=== PATIENT | male | born 1970 | race Caucasian/White ===

== ENCOUNTER 2017-04-03 09:30 | Inpatient (IN) | payer OTHER ==
--- NOTE | 2017-04-03 09:55 | EDPHY ---
H & P Smoking Status: Current every day smoker Time Seen by Provider: 04/03/17 09:46 HPI/ROS: CHIEF COMPLAINT: Left arm pain and swelling HISTORY OF PRESENT ILLNESS: 46-year-old male presents to the emergency department by private vehicle complaining of pain and swelling in his left arm since yesterday. He denies any known trauma or injury. He does state that he was doing some exercises at home and although he did not have any pain while doing the exercises he states after he finished, he noted a pressure sensation in his left elbow. He states throughout the day it is swollen and then this morning it has become more significantly swollen from his left humerus down to his left hand. He describes intermittent tingling in his fingers. He describes a lot of "pressure ". He denies pleuritic chest pain. Denies shortness of breath. Denies headache. No symptoms in the right upper extremity or the lower extremities bilaterally. No abdominal pain or vomiting. REVIEW OF SYSTEMS: Constitutional: No fever, no chills. Eyes: No double or blurry vision. ENT: No sore throat. Respiratory: No cough, no shortness of breath. Cardiac: No chest pain. Gastrointestinal: No abdominal pain, vomiting or diarrhea. Genitourinary: No dysuria. Musculoskeletal: No neck or back pain. Skin: No rashes. Neurological: No headache. (Gopal Perez) Past Medical/Surgical History: Smoker (Gopal Perez) Social History: Single and lives in [place] (Gopal Perez) Physical Exam: General Appearance: Alert, no distress. Blood pressure 159/109 Eyes: Pupils equal and round. Extraocular motions are all intact. ENT: Mouth: Mucous membranes moist. Respiratory: No wheezing, rhonchi, or rales, lungs are clear to auscultation. Cardiovascular: Regular rate and rhythm. Gastrointestinal: Abdomen is soft and nontender, no masses, no rebound or guarding, bowel sounds normal. Neurological: Alert and oriented x 3, cranial nerves II through XII grossly intact Skin: Warm and dry, no rashes. Ecchymosis noted Musculoskeletal: Nontender to palpate along the cervical, thoracic or lumbar spine. Neck is supple. Extremities: Left upper extremity reveals significant swelling and ecchymosis from the left proximal to mid humerus down to his left hand. His skin is warm and dry. He has a palpable radial pulse noted. Normal less than 2 second capillary refill. Diffusely tender to palpate. Limited extension of the left elbow secondary to pain. Full pronation and supination. Full range of motion of the left wrist. No palpable left axillary lymphadenopathy. No swelling of the right upper extremity or in his lower extremities bilaterally. Psychiatric: Patient is oriented X 3, there is no agitation. (Gopal Perez) Constitutional: Initial Vital Signs Temperature (C) 36.5 C 04/03/17 09:34 Heart Rate 91 04/03/17 09:34 Respiratory Rate 17 04/03/17 09:34 Blood Pressure 158/116 H 04/03/17 09:34 O2 Sat (%) 94 04/03/17 09:34 O2 Delivery Mode Room Air Allergies/Adverse Reactions: opiods Allergy (Uncoded 04/03/17 09:33) Home Medications: Medication Instructions Recorded Acetaminophen [Tylenol 325mg (*)] 325 mg PO DAILY PRN 04/03/17 Albuterol [Proventil Inhaler HFA 1 - 2 puffs IH DAILY PRN 04/03/17 (*)] Medical Decision Making - Diagnostics Imaging Results: Imaging Impressions Extremity Venous Study 04/03/17 09:52 Impression: DVT extending from the central subclavian vein through the central brachial and basilic veins. Findings discussed with GOPAL PEREZ 04/03/2017 at 11:19. ED Course/Re-evaluation: 46-year-old male presents to the emergency department with swelling to the left upper extremity. If the swelling has become acutely worse especially since last night. I was concerned about possible compartment syndrome. I did speak with Dr. Guardado, secondary supervising physician, who also evaluated the patient and obtained compartment pressures, see his procedure note. Ultrasound of the left upper extremity was positive for DVT in the left upper extremity extending from the central subclavian vein down to the brachial and basilic vein. I spoke with Dr. Guardado who talked with Dr. Rafal Navarro who will talk with Dr. Leon about thrombolysis in Interventional Radiology. Dr. Guardado spoke with Dr. Navarro at 11:45 a.m. and confirmed that this patient is a candidate for thrombolysis in Interventional Radiology. I then called and spoke with hospitalist and the patient will be admitted to ICU after thrombolysis in Interventional Radiology. A bed has been ordered. 1501: Dr. Ayleen Leon called the emergency department and stated that she would do her next scheduled case in Interventional Radiology and then call for the patient in the emergency department to be taken to Interventional Radiology for thrombolysis. (Gopal Perez) Differential Diagnosis: Including but not limited to DVT, hematoma, compartment syndrome, rhabdomyolysis , cellulitis (Gopal Perez) Other Provider: I evaluated and participated in the management of the patient. I also evaluated the patient independently. My co-signature indicates that I have reviewed this chart and I agree with the findings and plan of care as documented. My personal H&P findings include: The patient presents to the ED with acute left arm swelling. The patient's symptoms reportedly have increased over the past 24 hours. They began after physical activity yesterday. On examination the patient is noted to have marked soft tissue swelling of the left arm and forearm. The patient has 2+ radial and ulnar pulses. The patient has slightly decreased capillary refill. The patient is noted to have tenderness, swelling noted to both the anterior and posterior component of forearm. The patient did undergo a stat compartment pressure measurement performed by myself. The pressure in the anterior compartment was noted to be 22 mm of mercury. The pressure in the posterior compartment was noted to be 24 mm of mercury. The patient was taken for an upper extremity ultrasound which does demonstrate extensive DVT in the left upper extremity extending into the subclavian vein. The patient is started on IV heparin drip with bolus. Consultation was made with the interventional radiology service at 11:45 a.m. Spoke with interventional radiology who feels given the extent of the patient's upper extremity thrombosis intervention is indicated. The patient will be admitted to the intensive care unit under the care of the hospitalist. (Sahil Guardado) - Data Points Laboratory Results: Laboratory Results 04/03/17 10:05 04/03/17 10:05 04/03/17 04/03/17 04/03/17 10:05 10: 10:05 WBC 13.35 10^3/uL H 10^3/uL (3.80-9.50) RBC 5.18 10^6/uL 10^6/uL (4.40-6.38) Hgb 16.1 g/dL g/dL (13.7-17.5) Hct 48.5 % % (40.0-51.0) MCV 93.6 fL fL (81.5-99.8) MCH 31.1 pg pg (27.9-34.1) MCHC 33.2 g/dL g/dL (32.4-36.7) RDW 12.7 % % (11.5-15.2) Plt Count 315 10^3/uL 10^3/uL (150-400) MPV 9.4 fL fL (8.7-11.7) Neut % (Auto) 84.9 % H % (39.3-74.2) Lymph % (Auto) 8.0 % L % (15.0-45.0) Frontier % (Auto) 5.9 % % (4.5-13.0) Eos % (Auto) 0.5 % L % (0.6-7.6) Baso % (Auto) 0.4 % % (0.3-1.7) Nucleat RBC Rel Count 0.0 % % (0.0-0.2) Absolute Neuts (auto) 11.32 10^3/uL H 10^3/uL (1.70-6.50) Absolute Lymphs (auto) 1.07 10^3/uL 10^3/uL (1.00-3.00) Absolute Monos (auto) 0.79 10^3/uL 10^3/uL (0.30-0.80) Absolute Eos (auto) 0.07 10^3/uL 10^3/uL (0.03-0.40) Absolute Basos (auto) 0.06 10^3/uL 10^3/uL (0.02-0.10) Absolute Nucleated RBC 0.00 10^3/uL 10^3/uL (0-0.01) Immature Gran % 0.3 % % (0.0-1.1) Immature Gran # 0.04 10^3/uL 10^3/uL (0.00-0.10) PT 12.3 SEC SEC (12.0-15.0) INR 0.92 (0.83-1.16) APTT 27.2 SEC SEC (23.0-38.0) Fibrinogen 404 mg/dL mg/dL (214-456) Sodium 140 mEq/L mEq/L (134-144) Potassium 4.0 mEq/L mEq/L (3.5-5.2) Chloride 100 mEq/L mEq/L (97-110) Carbon Dioxide 24 mEq/l mEq/l (22-31) Anion Gap 16 mEq/L mEq/L (8-16) BUN 17 mg/dL mg/dL (7-23) Creatinine 0.9 mg/dL mg/dL (0.7-1.3) Estimated GFR > 60 Glucose 84 mg/dL mg/dL (70-100) Calcium 11.0 mg/dL H mg/dL (8.5-10.4) Phosphorus 4.0 mg/dL mg/dL (2.5-4.5) Creatine Kinase 245 IU/L H IU/L (0-224) CK-MB (CK-2) Fraction 3.23 ng/mL H ng/mL (0.00-3.19) CK-MB (CK-2) % 1.3 % % (0.0-4.0) Creatine Kinase Interp NEGATIVE (NEGATIVE) Medications Given: Hydrocodone Bitart/Acetaminophen ([place] 5/325) 1 - 2 tab PO Q4HRS PRN PRN Reason: Pain, Moderate Able to Take PO Stop: 04/13/17 12:16 Last Admin: 04/03/17 14:43 Dose: 2 tab Discontinued Medications Heparin Sodium (Porcine) (Heparin Injection) 0 unit IVP EDNOW ONE PRN Reason: Protocol Stop: 04/03/17 11:29 Last Admin: 04/03/17 11:50 Dose: 6,100 units Heparin Sodium (Porcine) (Heparin 50 Units/Ml (Premix)) 500 mls @ 0 mls/hr IV EDNOW ONE; Per Protocol PRN Reason: Protocol Stop: 04/03/17 11:29 Last Admin: 04/03/17 11:51 Dose: 500 mls Departure - Departure Disposition: [facility] Acute Clinical Impression: Deep vein thrombosis (DVT) of left upper extremity Qualifiers: Affected thrombotic vein of extremity: other upper extremity vein Chronicity: acute Qualified Code(s): I82.622 - Acute embolism and thrombosis of deep veins of left upper extremity Condition: Fair
[2017-04-03 10:15] LABS: % IMMATURE GRANULYOCYTES 0.3 % (0.0-1.1); ABSOLUTE IMMATURE GRANULOCYTES 0.04 10^3/uL (0.00-0.10); ADD DIFF? NO; ADD MORPH? NO; ADD SCAN? NO; ATYPICAL LYMPHOCYTE FLAG 0 (0-99); FRAGMENT RBC FLAG 0 (0-99); HEMATOCRIT 48.5 % (40.0-51.0); HEMOGLOBIN 16.1 g/dL (13.7-17.5); LEFT SHIFT FLG 0 (0-99); LIPEMIA HEMOLYSIS FLAG 80 (0-99); MEAN CELL HEMOGLOBIN 31.1 pg (27.9-34.1); MEAN CELL HEMOGLOBIN CONCENTR. 33.2 g/dL (32.4-36.7); MEAN CELL VOLUME 93.6 fL (81.5-99.8); MEAN PLATELET VOLUME 9.4 fL (8.7-11.7); PLATELET CLUMPS FLAG 0 (0-99); PLATELET COUNT 315 10^3/uL (150-400); RED BLOOD CELL COUNT 5.18 10^6/uL (4.40-6.38); RED CELL DISTRIBUTION WIDTH 12.7 % (11.5-15.2)
[2017-04-03 10:44] LABS: ANION GAP 16 mEq/L (8-16); CARBON DIOXIDE 24 mEq/l (22-31); CHLORIDE 100 mEq/L (97-110); CREATININE 0.9 mg/dL (0.7-1.3); GLOMERULAR FILTRATION RATE > 60; GLUCOSE 84 mg/dL (70-100); SODIUM 140 mEq/L (134-144)
[2017-04-03 11:06] LABS: CK-MB INTERPRETATION NEGATIVE (NEGATIVE)
[2017-04-03 11:09] LABS: CREATINE KINASE-MB FRACTION 3.23 ng/mL (0.00-3.19)
[2017-04-03] MEDS ORDERED: HEPARIN/DEXTROSE 500 ML IV ONE (11:28)
[2017-04-03] MEDS ORDERED: HEPARIN 10,000 UNIT/10 ML MDV IVP ONE ×2 (11:28→13:08)
[2017-04-03 11:37] LABS: INR 0.92 (0.83-1.16); PROTIME(PATIENT) 12.3 SEC (12.0-15.0)
[2017-04-03 11:38] LABS: APTT 27.2 SEC (23.0-38.0)
[2017-04-03] MEDS ORDERED: ACETAMINOPHEN 325 MG TAB PO PRN (12:17)
[2017-04-03] MEDS ORDERED: ONDANSETRON DISINTEGRATING 4 MG TAB PO PRN (12:17)
[2017-04-03] MEDS ORDERED: HYDROmorphONE/DILAUDID 1 MG/ML INJ IVP PRN (12:17)
[2017-04-03] MEDS ORDERED: ONDANSETRON 4 MG/2 ML VIAL IVP PRN (12:17)
[2017-04-03] MEDS ORDERED: ALBUTEROL 200 PUFFS/18 GM MDI IH PRN (12:56)
[2017-04-03] MEDS ORDERED: HEPARIN/DEXTROSE 500 ML IV SCH ×2 (13:15→17:45)
--- NOTE | 2017-04-03 14:04 | GHP ---
[f rep st] HISTORY AND PHYSICAL DATE OF ADMISSION: 04/03/2017 CHIEF COMPLAINT: Left upper extremity swelling and pain. HISTORY OF PRESENT ILLNESS: This is a 46-year-old male with limited past medical history beyond asth ma who presents after developing some mild swelling of his left upper extremity while completing a vi gorous [employer] routine the day prior to presentation. Patient reports that his arm felt a bit s wollen and tight, but he was able to massage it and make it more comfortable. He then [place] the day of presentation and had almost immediate severe swelling of the left upper e xtremity with marked pain, and therefore, presented to the emergency department. Patient denies any pleuritic chest pain, palpitations, shortness of breath, headache, numbness, tingling. Denies any ch anges in his stools, dysuria, hematuria, or swelling of any of his other extremities. Patient denies any preceding history of clotting events. PAST MEDICAL HISTORY: Asthma. SOCIAL HISTORY: Positive for tobacco, a half a pack per day, and has done so for 30 years. Drinks o ccasional alcohol. Denies illicit drugs or marijuana. FAMILY HISTORY: Negative for any thromboembolic disease. Had a father who of heart failure in his 30s. Details around this are unknown to the patient. ADVANCED DIRECTIVES: Patient is full cor, full tube. REVIEW OF SYSTEMS: A 10-point review of systems is negative with the exception of that reported in t he HPI. PHYSICAL EXAMINATION: VITAL SIGNS: Blood pressure 165/90, heart rate 113, respiratory rate 20, 94% on room air, 36.6. GENERAL: This is a healthy-appearing middle-aged male in no acute distress. AKI NT: Notable for moist mucous membranes. Eye exam is negative for any icterus. CARDIAC: Patient is regular but tachycardic. PULMONARY: No wheezing. Clear to auscultation bilaterally. GASTROINTEST INAL: Positive bowel sounds. Abdomen is soft. MUSCULOSKELETAL: Notable for 2+ edema extending fro m the fingers to the upper arm on the left. A palpable pulse is noted radially. There is no swellin g of any of the other extremities. SKIN: Notable for bluish discoloration also of the left upper ex tremity. The skin is cool to touch. NEUROLOGIC: He is alert and oriented x3. PSYCHIATRIC: He is pleasant and cooperative on interview and examination. DATA: White count 13.3, hematocrit 48.5, platelets of 315. Creatinine 0.9, sodium 140. INR 0.92. Ultrasound of the left upper extremity shows an extensive thrombus extending from the left subclavian through the brachial and cephalic veins. Telemetry, which I personally reviewed and interpreted, sh owed sinus tachycardia. ASSESSMENT AND PLAN: This is a 46-year-old male presenting with left arm pain. 1. Spontaneous left upper extremity subclavian thrombus. Differential would include Paget-von Schro tter syndrome, which is associated with spontaneous thrombosis with repetitive exercise of the extrem ity. Patient does not have other concerning family history. Would be appropriate to initiate a hype rcoagulation workup but certainly not in the setting of acute thrombus. We have initiated a heparin drip in the emergency department, and the patient is going to be taken to the ICU for monitoring and thrombolysis by Interventional Radiology. Long-term anticoagulation can be initiated after thromboly sis regimen is complete. 2. Asthma. Patient is not wheezing on exam. Will continue to monitor, p.r.n. albuterol has been wr itten for per his home dosing. 3. Sinus tachycardia. Suspect this actually has more to do with pain than hypovolemia or pulmonary embolism as the patient has no pleuritic chest pain and is not requiring oxygen supplementation. Aga in, will continue to monitor the patient in the intensive care unit while he undergoes thrombolysis b y Interventional Radiology. 4. Prophylaxis. Patient is on heparin drip per protocol for thrombolysis. DISPOSITION: I expect greater than 2 midnights as the patient will need to undergo the entire thromb olytic regimen, which is greater than 24 hour treatment course. I have discussed the case with the e mergency room physician, and patient will be triaged to the ICU for thrombolysis and monitoring. /[id number]/MODL
[2017-04-03] MEDS: HYDROCODONE/APAP 5/325 TAB PO PRN ×2 (14:43→22:07)
[2017-04-03] MEDS ORDERED: NALOXONE HCL 0.4 MG/ML INJ ONE (15:55)
[2017-04-03] MEDS ORDERED: FLUMAZENIL 0.5 MG/5 ML MDV IVP ONE (15:55)
[2017-04-03] MEDS ORDERED: fentaNYL 100 MCG/2 ML INJ ONE (15:55)
[2017-04-03] MEDS ORDERED: MIDAZOLAM 2 MG/2 ML VIAL ONE (15:55)
[2017-04-03] MEDS ORDERED: ALTEPLASE 5 MG in NS 100 ML IV SCH (17:00)
[2017-04-03] MEDS ORDERED: IOPAMIDOL (ISOVUE-300) 100 ML BTL ONE (17:28)
[2017-04-03] MEDS ORDERED: LORazepam 1 MG TAB PO PRN (17:41)
[2017-04-03] MEDS ORDERED: PROMETHAZINE HCL 25 MG/ML INJ IVP PRN (17:41)
--- NOTE | 2017-04-03 17:41 | POSTOPPROG ---
Post Op Note Date of Operation: 04/03/17 Surgeon: Laura Leon Anesthesia: IV Sedation (fentanyl and versed) Pre-op Diagnosis: LUE DVT Post-op Diagnosis: same; thoracic-outlet syndrome Indication: severe swelling Procedure: venogram, TPA lysis Findings: thoracic outlet syndrome; complete sub clot Inf/Abcess present in the surg proc area at time of surgery?: No Depth: Superfical (Skin SQ) EBL: Minimal Complications: none
[2017-04-03 18:53] LABS: APTT 32.9 SEC (23.0-38.0)
[2017-04-03] MEDS ORDERED: CALCIUM CARBONATE 500 MG CHEWABLE TAB PO ONE (19:31)
[2017-04-03] MEDS: ALTEPLASE 5 MG in NS 100 ML IV SCH (20:34)
--- NOTE | 2017-04-03 21:22 | SOAPPROG ---
[facility] Progress Note Assessment/Plan: Assessment: 46-YEAR-OLD MALE WITH EXTENSIVE LEFT ARM DVT AND TOTAL OCCLUSION AT THE THORACIC INLET/PRESENTLY UNDERGOING THROMBOLYSIS AND FUTURE FOLLOW-UP VENOGRAPHY Plan: WILL SEE IN THE A.M. TO EVALUATE FOR VENTRAL 1ST RIB RESECTION 04/03/17 21:21 Objective: Vital Signs Temp Pulse Resp BP Pulse Ox 36.6 C 113 H 20 165/90 H 94 04/03/17 12:35 04/03/17 12:35 04/03/17 12:35 04/03/17 12:35 04/03/17 12:35 04/02/17 04/03/17 04/04/17 05:59 05:59 05:59 Intake Total 500 Output Total 700 Balance -200 PT 12.3 SEC (12.0-15.0) 04/03/17 10:05 INR 0.92 (0.83-1.16) 04/03/17 10:05 ICD10 Worksheet Patient Problems: Problems Problem Status Onset Deep vein thrombosis (DVT) of left upper extremity Acute
[2017-04-04] MEDS: ALTEPLASE 5 MG in NS 100 ML IV SCH ×2 (01:15→06:01)
[2017-04-04 05:50] LABS: % IMMATURE GRANULYOCYTES 0.4 % (0.0-1.1); ABSOLUTE IMMATURE GRANULOCYTES 0.04 10^3/uL (0.00-0.10); ADD DIFF? NO; ADD MORPH? NO; ADD SCAN? NO; ATYPICAL LYMPHOCYTE FLAG 10 (0-99); FRAGMENT RBC FLAG 0 (0-99); HEMATOCRIT 41.5 % (40.0-51.0); HEMOGLOBIN 13.9 g/dL (13.7-17.5); LEFT SHIFT FLG 0 (0-99); LIPEMIA HEMOLYSIS FLAG 80 (0-99); MEAN CELL HEMOGLOBIN 31.2 pg (27.9-34.1); MEAN CELL HEMOGLOBIN CONCENTR. 33.5 g/dL (32.4-36.7); MEAN PLATELET VOLUME 9.6 fL (8.7-11.7); PLATELET CLUMPS FLAG 0 (0-99); PLATELET COUNT 281 10^3/uL (150-400); RED BLOOD CELL COUNT 4.46 10^6/uL (4.40-6.38); RED CELL DISTRIBUTION WIDTH 12.8 % (11.5-15.2)
[2017-04-04 06:26] LABS: APTT 33.1 SEC (23.0-38.0)
[2017-04-04 06:33] LABS: ANION GAP 10 mEq/L (8-16); CALCIUM 9.2 mg/dL (8.5-10.4); CARBON DIOXIDE 22 mEq/l (22-31); CHLORIDE 106 mEq/L (97-110); CREATININE 0.9 mg/dL (0.7-1.3); GLOMERULAR FILTRATION RATE > 60; GLUCOSE 88 mg/dL (70-100); POTASSIUM 4.5 mEq/L (3.5-5.2); SODIUM 138 mEq/L (134-144)
--- NOTE | 2017-04-04 10:44 | GCON ---
[f rep st] CONSULTATION [employer]IST CONSULTATION. REASON FOR ADMISSION: Left upper extremity swelling. HISTORY OF PRESENT ILLNESS: The patient is a 46-year-old white male with a past medical history of a sthma. He presented after significant swelling of his left upper extremity. This began after vigoro us calisthenics. He was brought to the emergency room and subsequently diagnosed with a large upper extremity DVT and subclavian thrombus. Interventional Radiology became involved, and he has undergon e EKOS and localized tPA. Currently he is in the intensive care unit. In discussion with the patien angeline, he states that his pain is well controlled. He denies any chest pain, pleuritic-type chest pain, or angina equivalent. No cough or productive sputum. No fever or night sweats. PAST MEDICAL HISTORY: Significant for asthma. SOCIAL HISTORY: Infrequent alcohol use. He smokes approximately half pack a day for the last 30 yea rs. PHYSICAL EXAM: VITAL SIGNS: Blood pressure 132/76, pulse 90, respirations 11, temperature 37.3, oxy gen saturation 97% on 2 L. GENERAL: He is a well-developed, well-nourished, 46-year-old white male who is resting comfortably in no acute distress. HEENT: Eyes: PERRLA, EOMI. Throat shows no eryth divya or tonsillar hypertrophy. NECK: Supple. There is no cervical adenopathy. HEART: Regular rate and rhythm without murmurs, rubs, gallops. LUNGS: Clear to auscultation. No wheeze or rhonchi. A BDOMEN: Soft, nontender. Bowel sounds are present. EXTREMITIES: Left upper extremity shows signif icant swelling. EKOS catheter is in place. LABORATORIES: White count 10, hemoglobin 13, hematocrit 41, platelet count 281. Sodium 138, potassi um 4.5, chloride 106, CO2 is 22, BUN 16, creatinine 0.9, glucose is 88. IMPRESSION: 1. Left upper extremity thrombus of the subclavian vein. Etiology of which is unclear. 2. Asthma. RECOMMENDATIONS: 1. Agree with EKOS. 2. Consider outpatient workup for SVC syndrome. 3. DVT and PE prophylaxis. 4. Stress ulcer prophylaxis. 5. Adequate pain control. /[id number]/MODL
[2017-04-04] MEDS ORDERED: fentaNYL 100 MCG/2 ML INJ ONE (10:54)
[2017-04-04] MEDS ORDERED: MIDAZOLAM 2 MG/2 ML VIAL ONE (10:54)
[2017-04-04] MEDS ORDERED: IOPAMIDOL (ISOVUE-300) 100 ML BTL ONE (11:32)
[2017-04-04 12:01] VITALS: BP 124/74; PULSE 101; RESP 14; TEMP 97.5; O2SAT 96
[2017-04-04] MEDS ORDERED: ENOXAPARIN 100 MG/ML SYR SC SCH ×2 (14:30)
--- NOTE | 2017-04-04 15:41 | ASMTCMCOM ---
CM Note CM Note Notes: CM Discharge Note: Patient going home independently. Per Dr Shah, needs Lovenox. I called [employer] to request prior auth, so prior auth is pending. Meanwhile, we will use Medication Assistance Program to provide patient with next two doses. Date Signed: 04/04/2017 03:40 PM Electronically Signed By:Lacy Rodriguez RN
--- NOTE | 2017-04-05 00:47 | GDS ---
[f rep st] DISCHARGE SUMMARY DISCHARGE DIAGNOSES: 1. Left upper extremity deep vein thrombosis. 2. Paget-Schroetter syndrome. 3. Tobacco dependence. 4. Asthma. HISTORY: The patient is a 46-year-old male, who presented with some swelling of his left upper extre mity and was diagnosed with a left upper extremity DVT. He was admitted to the ICU and underwent tPA with IR. He went back to IR today for venography. On followup, his veins are widely patent with no residual clot. He had a high-grade stenosis in his left subclavian vein just proximal to the juncti on of the left subclavian and brachiocephalic veins where the subclavian vein passes between the clav icle and the 1st rib. This is compatible with Paget-Schroetter syndrome. Dr. Ye saw him in consu ltation and does want to perform surgery; however, would like to have the vessel heal for a couple of weeks and will schedule that with him as an outpatient. IR recommended therapeutic Lovenox to continue until surgery. Unfortunately, this was cost prohibiti ve despite getting a prior authorization through his insurance. Instead, I spoke with the patient re garding transitioning to Coumadin after 5 days Lovenox therapy, and he is agreeable. Lovenox prescri ption altered upon discussion with [facility] for a 5-day Lovenox course and starting warf peng at 5 mg p.o. daily. He will see his primary care doctor in a couple of days for INR check and f urther management. He should have at least a 5-day overlap Lovenox and perhaps longer if his INR is not therapeutic after 5 days. This can be managed by primary care. DISCHARGE MEDICATIONS: Please see computer record for full detailed list. New medications: 1. Lovenox 100 mg subcu b.i.d. for 5 days, 10 doses dispensed. 2. Warfarin 5 mg p.o. daily. ADDITIONAL DISCHARGE INSTRUCTIONS: 1. Five days Lovenox with transition to warfarin. 2. Okay to discontinue Lovenox when INR is greater than 2. 3. INR check on Sunday with primary care, Dr. Driver. 4. Follow up with Dr. Ye to schedule surgery for Paget-Schroetter syndrome. Please note the patient was very anxious to discharge and went home prior to his prior authorization being complete. When expensive $2700 was found, I called the patient at home and over the phone rear ranged the plan to include the transition to warfarin. Patient was agreeable to the plan. I spoke t fior [facility] and told them to partially fill his Lovenox to complete only a 5-day course o f therapy. Further Lovenox can be prescribed under primary care direction if he does not become ther apeutic on his warfarin after the initial course. Greater than 30 minutes' time was spent arranging this discharge. Patient was seen and examined by john gates on the day of discharge. He was admitted to observation status but did have rapid improvement, muc h faster than anticipated, and did discharge after only 1 night. /[id number]/MODL
--- NOTE | 2017-04-05 16:36 | ASDISCHSUM ---
Discharge Information Plan Status:Home with No Needs Medically Cleared to Leave: Discharge Date:04/04/2017 03:49 PM CM D/C Disposition:Home, Routine, Self-Care ADT D/C Disposition:Home, Routine, Self-Care Projected Discharge Date:04/04/2017 03:49 PM Transportation at D/C:Self Discharge Delay Reason: Follow-Up Date:04/04/2017 03:49 PM Discharge Slot: Final Diagnosis: Placement Information Patient Contact Information Contact Name:AVA Relationship: Address: Work Phone: [facility]:[place] Alternate Phone: State/Zip Code:[place] [address] Email: Financial Information Financial Class:[employer] [facility] Primary Plan Desc:[employer] OPEN ACC LOCAL Primary Plan Number:[id number] Secondary Plan Desc: Secondary Plan Number: Assessment Information [facility] CM Progress Note CM Note CM Note Notes: CM Discharge Note: Patient going home independently. Per Dr Shah, needs Huoshi. I called [employer] to request prior auth, so prior auth is pending. Meanwhile, we will use Medication Assistance Program to provide patient with next two doses. Date Signed: 04/04/2017 03:40 PM Electronically Signed By:Lacy Rodriguez RN Intervention Information Intervention Type:*Incorrect Registration Date of Service:04/04/2017 08:39 AM Patient Type:Inpatient Staff Member:SAMAN Damon Dina Hours: Discipline: Severity: Comment:
== END 2017-04-04 15:49 | disposition home or self-care (01) | DRG 272 ==
LOC: OBSVTOIN 11:45 → F2N 17:40
PROVIDERS: ADMIT Hospitalist; ATTEND Hospitalist
PROC: 05C83ZZ Extirpation of Matter from Left Axillary Vein, Percutaneous Approach (ICD-10-PCS; principal; 2017-04-04)
PROC: 05C63ZZ Extirpation of Matter from Left Subclavian Vein, Percutaneous Approach (ICD-10-PCS; principal; 2017-04-04)
DX: I82.B12 Acute embolism and thrombosis of left subclavian vein (principal); I82.890 Acute embolism and thrombosis of other specified veins; F17.200 Nicotine dependence, unspecified, uncomplicated; J45.909 Unspecified asthma, uncomplicated; G54.0 Brachial plexus disorders
CPT/HCPCS: 96365; C1757; C1758; C1769; C1894; J1644; J1650; J2250; J2310; J2405; J2997; J3010; Q9967

== ENCOUNTER 2017-04-06 03:57 | Emergency (ER) | payer OTHER ==
--- NOTE | 2017-04-06 04:04 | EDPHY ---
H & P Stated Complaint: bleeding from sx site- on lovenox HPI/ROS: HPI CHIEF COMPLAINT: Bleeding after removing pressure dressing. HISTORY OF PRESENT ILLNESS: This patient 46-year-old male, significant past medical history for recent DVT status post thrombectomy. On Lovenox shots. He took his pressure dressing off around 11:00 p.m. last night and realized that he had a slow trickle venous blood coming out of it. Unable to get it to stop. Decided come the emergency room for a new dressing. His left upper extremity is noted to be swollen. Ecchymotic. He states the swelling is much improved than what it was. Does not have any significant pain. He denies chest pain or shortness of breath or left arm pain. Main complaint is new pressure dressing for bleeding. Is on Lovenox and Coumadin. Past Medical History: Recent DVT status post tPA thrombectomy. Paget Schrotter syndrome Past Surgical History: Left upper extremity venogram and tPA. Social History: Denies daily use drugs alcohol tobacco products. Family History: Noncontributory ROS REVIEW OF SYSTEMS: A comprehensive 10 point review of systems is otherwise negative aside from elements mentioned in the history of present illness. Exam Constitutional triage nursing summary reviewed, vital signs reviewed, awake/ alert. Eyes normal conjunctivae and sclera, EOMI, PERRLA. HENT normal inspection, atraumatic, moist mucus membranes, no epistaxis, neck supple/ no meningismus, no raccoon eyes. Respiratory clear to auscultation bilaterally, normal breath sounds, no respiratory distress, no wheezing. Cardiovascular rate normal, regular rhythm, no murmur, no edema, distal pulses normal. Gastrointestinal soft, non-tender, no rebound, no guarding, normal bowel sounds, no distension, no pulsatile mass. Genitourinary no CVA tenderness. Musculoskeletal left upper extremity: Swelling present. Significant. Ecchymosis present. Neurovascular intact. Good radial pulse good warm extremity. On the medial aspect of the upper arm mid biceps region there is a puncture site is bleeding venous blood. no midline vertebral tenderness, full range of motion, no calf swelling, no tenderness of extremities, no meningismus , good pulses, neurovascularly intact. No evidence of arterial injury. No evidence arterial bleed on exam. Skin pink, warm, & dry, no rash, skin atraumatic. Neurologic awake, alert and oriented x 3, AAOx3, moves all 4 extremities equally, motor intact, sensory intact, CN II-XII intact, normal cerebellar, normal vision, normal speech. Psychiatric normal mood/affect. Heme/Lymph/Immune no lymphadenopathy. Differential Diagnosis: Includes but is not limited to in a particular order: Postsurgical bleed, hematoma of the left upper extremity, venous puncture site bleeding, supratherapeutic INR Medical Decision Making: Plan for this patient check blood work, IV establishment, pressure dressing. Observed. Re-evaluation: 05: He new pressure dressing was placed. He has maintained in the emergency room for over an hour for observation to make sure does not rebleed through his dressing. His arm is neurovascular intact. Soft compartments. No evidence of compartment syndrome or significant pain on exam. Neurovascular intact good distal pulse. Good cap refill. Pressure dressing in place. Good hemostasis. No significant further bleeding. Recommend keeping pressure dressing in place for 24 hours. Return emergency room if he rebleeds. He is on Lovenox and Coumadin. He understands return if his arm gets more swollen more painful numbness or tingling blue discoloration or bleeding through his dressing. Source: Patient - Medical/Surgical History Hx Asthma: Yes Hx Chronic Respiratory Disease: No Hx Diabetes: No Hx Cardiac Disease: No Hx Renal Disease: No Hx Cirrhosis: No Hx Alcoholism: No Hx HIV/AIDS: No Hx Splenectomy or Spleen Trauma: No Other PMH: left arm DVT - Social History Smoking Status: Current every day smoker Constitutional: Initial Vital Signs Temperature (C) 37.1 C 04/06/17 03:58 Heart Rate 107 H 04/06/17 03:58 Respiratory Rate 18 04/06/17 03:58 Blood Pressure 136/108 H 04/06/17 03:58 O2 Sat (%) 96 04/06/17 03:58 O2 Delivery Mode Room Air Allergies/Adverse Reactions: opiods Allergy (Uncoded 04/03/17 09:33) Home Medications: Medication Instructions Recorded Acetaminophen [Tylenol 325mg (*)] 325 mg PO DAILY PRN 04/03/17 Albuterol [Proventil Inhaler HFA 1 - 2 puffs IH DAILY PRN 04/03/17 (*)] Enoxaparin [Lovenox 100 MG (*)] 100 mg SC BID #60 syr 04/04/17 Warfarin Sodium 5 mg PO DAILY #30 tablet 04/04/17 Medical Decision Making - Data Points Laboratory Results: Laboratory Results 04/06/17 04:24 04/06/17 04:24 04/06/17 04/06/17 04/06/17 04:24 04:24 04:24 WBC 8.31 10^3/uL 10^3/uL (3.80-9.50) RBC 4.15 10^6/uL L 10^6/uL (4.40-6.38) Hgb 13.0 g/dL L g/dL (13.7-17.5) Hct 38.7 % L % (40.0-51.0) MCV 93.3 fL fL (81.5-99.8) MCH 31.3 pg pg (27.9-34.1) MCHC 33.6 g/dL g/dL (32.4-36.7) RDW 12.7 % % (11.5-15.2) Plt Count 244 10^3/uL 10^3/uL (150-400) MPV 9.5 fL fL (8.7-11.7) Neut % (Auto) 54.9 % % (39.3-74.2) Lymph % (Auto) 30.8 % % (15.0-45.0) [place] % (Auto) 10.1 % % (4.5-13.0) Eos % (Auto) 3.2 % % (0.6-7.6) Baso % (Auto) 0.6 % % (0.3-1.7) Nucleat RBC Rel Count 0.0 % % (0.0-0.2) Absolute Neuts (auto) 4.56 10^3/uL 10^3/uL (1.70-6.50) Absolute Lymphs (auto) 2.56 10^3/uL 10^3/uL (1.00-3.00) Absolute Monos (auto) 0.84 10^3/uL H 10^3/uL (0.30-0.80) Absolute Eos (auto) 0.27 10^3/uL 10^3/uL (0.03-0.40) Absolute Basos (auto) 0.05 10^3/uL 10^3/uL (0.02-0.10) Absolute Nucleated RBC 0.00 10^3/uL 10^3/uL (0-0.01) Immature Gran % 0.4 % % (0.0-1.1) Immature Gran # 0.03 10^3/uL 10^3/uL (0.00-0.10) PT 12.5 SEC SEC (12.0-15.0) INR 0.94 (0.83-1.16) APTT 36.0 SEC SEC (23.0-38.0) Sodium 140 mEq/L mEq/L (134-144) Potassium 3.7 mEq/L mEq/L (3.5-5.2) Chloride 105 mEq/L mEq/L (97-110) Carbon Dioxide 23 mEq/l mEq/l (22-31) Anion Gap 12 mEq/L mEq/L (8-16) BUN 15 mg/dL mg/dL (7-23) Creatinine 0.8 mg/dL mg/dL (0.7-1.3) Estimated GFR > 60 Glucose 110 mg/dL H mg/dL (70-100) Calcium 9.8 mg/dL mg/dL (8.5-10.4) Departure - Departure Disposition: Home, Routine, Self-Care Clinical Impression: Bleeding Condition: Good Instructions: Enoxaparin (By injection) Additional Instructions: 1.Watch your arm if it becomes more swollen more painful numbness or tingling or questions or concerns please immediately return to the emergency room. 2. Keep your pressure dressing on. 3. If you have further bleeding please return immediately to the emergency room. If her arm appears more swollen more bruising more painful return to the ER for assessment. 4. Take it easy today. Referrals: MATIAS PEPE [Primary Care Provider] - As per Instructions
[2017-04-06 04:32] LABS: % IMMATURE GRANULYOCYTES 0.4 % (0.0-1.1); ABSOLUTE IMMATURE GRANULOCYTES 0.03 10^3/uL (0.00-0.10); ADD DIFF? NO; ADD MORPH? NO; ADD SCAN? NO; ATYPICAL LYMPHOCYTE FLAG 0 (0-99); FRAGMENT RBC FLAG 0 (0-99); HEMATOCRIT 38.7 % (40.0-51.0); LEFT SHIFT FLG 0 (0-99); LIPEMIA HEMOLYSIS FLAG 80 (0-99); MEAN CELL HEMOGLOBIN 31.3 pg (27.9-34.1); MEAN CELL HEMOGLOBIN CONCENTR. 33.6 g/dL (32.4-36.7); MEAN CELL VOLUME 93.3 fL (81.5-99.8); MEAN PLATELET VOLUME 9.5 fL (8.7-11.7); PLATELET CLUMPS FLAG 0 (0-99); PLATELET COUNT 244 10^3/uL (150-400); RED BLOOD CELL COUNT 4.15 10^6/uL (4.40-6.38); RED CELL DISTRIBUTION WIDTH 12.7 % (11.5-15.2)
[2017-04-06 04:42] LABS: INR 0.94 (0.83-1.16); PROTIME(PATIENT) 12.5 SEC (12.0-15.0)
[2017-04-06 04:58] LABS: ANION GAP 12 mEq/L (8-16); CALCIUM 9.8 mg/dL (8.5-10.4); CARBON DIOXIDE 23 mEq/l (22-31); CHLORIDE 105 mEq/L (97-110); CREATININE 0.8 mg/dL (0.7-1.3); GLOMERULAR FILTRATION RATE > 60; GLUCOSE 110 mg/dL (70-100); POTASSIUM 3.7 mEq/L (3.5-5.2); SODIUM 140 mEq/L (134-144)
[2017-04-06 05:42] VITALS: BP 134/67; PULSE 70; RESP 16; TEMP 98.1; O2SAT 97
== END 2017-04-06 05:41 | disposition home or self-care (01) ==
DX: M96.831 Postprocedural hemorrhage of a musculoskeletal structure following other procedure (principal); J45.909 Unspecified asthma, uncomplicated; F17.200 Nicotine dependence, unspecified, uncomplicated; Z79.01 Long term (current) use of anticoagulants

== ENCOUNTER 2017-05-14 05:30 | Observation (INO) | payer OTHER ==
--- NOTE | 2017-05-09 16:30 | GHP ---
[f rep st] PREOP HISTORY AND PHYSICAL DATE OF ADMISSION: 05/14/2017 HISTORY OF PRESENT ILLNESS: The patient is a 46-year-old male who was recently in the hospital with an extensive left upper extremity DVT thought to be secondary to thoracic outlet syndrome. TPA lysis was successful. He has since been on weight-based twice daily Lovenox and Coumadin. His INR has be en managed through his PCP, Dr. Driver. He complains of persistent, although improving, left upper extremity swelling. He denies numbness, t ingling, loss of sensation, and loss of strength. He has some musculoskeletal shoulder pain, mostly his posterior deltoid region. The patient is a tobacco smoker. He has a family history of congestive heart failure. He has no kno wn hypercoagulability problems. PAST MEDICAL HISTORY: Includes thoracic outlet syndrome and DVT, as described above. PAST SURGICAL HISTORY: Denies. MEDICATIONS: Ventolin HFA and warfarin. ALLERGIES: Codeine. SOCIAL HISTORY: The patient is a smoker, and he works in technical support. REVIEW OF SYSTEMS: Ten-point review of systems negative, aside from that in the HPI. PHYSICAL EXAMINATION: GENERAL: Reveals a 46, well-developed, well-nourished male in no acute distre ss. Alert and oriented x3. HEENT: Normocephalic, atraumatic. Pupils equal and round. NECK: Supp le. CHEST: Clear to auscultation bilaterally, without wheezes, rhonchi, or rales. CARDIAC: Regula r rate and rhythm, without murmurs. ABDOMEN: Soft, nontender, nondistended. : Genital exam deferred. EXTREMITIES: Significant for some left upper extremity edema. No color changes. Sensation is intact. 5/5 brand sales manager strength. Hands are warm, and he has palpable radial pulse s. NEURO: Grossly intact. IMPRESSION: This is a 46-year-old male with an extensive left upper extremity deep vein thrombosis, thought to be secondary to thoracic outlet syndrome. PLAN: Plan is to take the patient for a left transaxillary first rib resection. He will need to hol d his Coumadin 3 days prior to his procedure. We would like to bridge him with Lovenox; however, he says the idea of this is off the table secondary to cost concerns. He understands he is taking a ris k of rethrombosis. We discussed possibly reversing with vitamin K and clotting products as needed. After the surgery, he will likely need a repeat venogram. We talked about him possibly needing a shekhar nt. If he has a stenotic area not amenable to stenting, he may need a second surgery for vein patch, which could be from a supraclavicular approach. Risks and options have been discussed, including, but not limited to, bleeding, infection, nerve inju ry, pneumothorax, hemothorax, recurrent thrombosis, need for further surgeries and/or procedures, dam age to surrounding structures, and other problems, and he requests to proceed. Patient was seen and examined by me and Dr. Ye. /[id number]/MODL
[2017-05-14] MEDS ORDERED: ceFAZolin 2 GM/SWFI 2 GM/20 ML SYR IVP ONE (05:53)
[2017-05-14] MEDS ORDERED: LIDOCAINE 1% 2 ML INJ ID PRN (05:54)
[2017-05-14] MEDS ORDERED: LR 1,000 ML IV ONE (05:54)
[2017-05-14] MEDS ORDERED: THROMBIN (BOVINE) 5,000 UNIT VIAL TP ONE (06:17)
[2017-05-14] MEDS ORDERED: BUPIVACAINE 0.5% 30 ML SDV ONE (06:17)
[2017-05-14 06:34] LABS: INR 1.15 (0.83-1.16); PROTIME(PATIENT) 14.7 SEC (12.0-15.0)
[2017-05-14] MEDS ORDERED: MIDAZOLAM 2 MG/2 ML VIAL IVP ONE (07:06)
--- NOTE | 2017-05-14 07:06 | PDANEPAE ---
ANE History of Present Illness 47 year old male w/ PMHx of asthma, active smokers, LUE DVT (on anti-coagulation , held for surgery) diagnosed with LUE thoracic outlet syndrome presents for resection of left 1st rib. ANE Past Medical History - Cardiovascular History Hx Hypertension: No Hx Arrhythmias: No Hx Chest Pain: No Hx Coronary Artery / Peripheral Vascular Disease: No Hx CHF / Valvular Disease: No Hx Palpitations: No - Pulmonary History Hx COPD: No Hx Asthma/Reactive Airway Disease: Yes Hx Recent Upper Respiratory Infection: No Hx Oxygen in Use at Home: No Hx Sleep Apnea: No Sleep Apnea Screening Result - Last Documented: Negative Pulmonary History Comment: ASTHMA-ENVIRONMENTAL TRIGGERS - Neurologic History Hx Cerebrovascular Accident: No Hx Seizures: No Hx Dementia: No - Endocrine History Hx Diabetes: No Hypothyroid: No Hyperthyroid: No Obesity: mild - Renal History Hx Renal Disorders: No - Liver History Hx Hepatic Disorders: No - Neurological & Psychiatric Hx Hx Neurological and Psychiatric Disorders: No - Cancer History Hx Cancer: No - Congenital Disorder History Hx Congenital Disorders: No - GI History GERD: no Hx Gastrointestinal Disorders: No - Other Health History Other Health History: THORACIC OUTLET SYNDROME. LT UPPER EXT DVT 04/2017 - Chronic Pain History Chronic Pain: No - Surgical History Prior Surgeries: NONE ANE Review of Systems Review of systems is: negative Review of Systems: - Exercise capacity Exercise capacity: >=4 METS METS (RN): 4 METS ANE Patient History - Allergies Allergies/Adverse Reactions: codeine Allergy (Verified 05/08/17 14:00) Swelling/neck,face,throat - Home Medications Home medications: home medication list seen and reviewed Home Medications: Acetaminophen [Tylenol 325mg (*)] 325 mg PO DAILY PRN 04/03/17 [Last Taken 05/07] Albuterol [Proventil Inhaler HFA (*)] 1 - 2 puffs IH DAILY PRN 04/03/17 [Last Taken 05/13/17] Aspirin [Aspirin 81mg (*)] 81 mg PO DAILY 05/08/17 [Last Taken 05/10/17] Herbals/Supplements -Info Only 1 ea PO DAILY 05/08/17 [Last Taken 04/30/17] Triamcinolone 0.1% [Triamcinolone 0.1% Cream (*)] 1 vicente TP DAILY 05/08/17 [Last Taken 05/12/17] Warfarin Sodium [Coumadin 5MG (*)] 10 mg PO DAILY16 05/08/17 [Last Taken 22:00] - NPO status NPO Status: no food or drink >8 hours NPO Since - Liquids (Date): 05/13/17 NPO Since - Liquids (Time): 22:00 NPO Since - Solids (Date): 05/13/17 NPO Since - Solids (Time): 22:00 - Anes Hx Anes Hx: no prior problems - Smoking Hx Smoking Status: Current every day smoker - Alcohol Use Alcohol Use: Rarely - Family Anes Hx Family Anes Hx: neg - N/A Family Hx Anesthesia Complications: NEG ANE Labs/Vital Signs - Vital Signs Vital Signs: reviewed preoperatively; see RN documention for details Blood Pressure: 153/104 Heart Rate: 88 Respiratory Rate: 20 O2 Sat (%): 94 Height: 182.88 cm Weight: 102.058 kg ANE Physical Exam - Airway Neck exam: FROM Mallampati Score: Class 1 Mouth exam: poor dentition - Pulmonary Pulmonary: no respiratory distress - Cardiovascular Cardiovascular: regular rate and rhythym - ASA Status ASA Status: II ANE Anesthesia Plan Anesthesia Plan: general endotracheal anesthesia Total IV Anesthesia: No
[2017-05-14] MEDS ORDERED: MIDAZOLAM 2 MG/2 ML VIAL ONE (07:11)
[2017-05-14] MEDS ORDERED: fentaNYL 100 MCG/2 ML INJ ONE ×3 (07:12→09:47)
[2017-05-14] MEDS ORDERED: PROPOFOL 200 MG/20 ML VIAL ONE (07:12)
--- NOTE | 2017-05-14 07:13 | PDHPUP ---
History & Physical Update H&P update statement: This history and physical update is based on an assessment of the patient which was completed after admission or registration (within 24 hours), but prior to the surgery/procedure. H&P update: H&P reviewed & patient examined, no change in patient's condition since H&P completed
[2017-05-14] MEDS ORDERED: HYDROmorphONE/DILAUDID 1 MG/ML INJ IVP PRN ×2 (07:28→09:26)
[2017-05-14] MEDS ORDERED: NALOXONE HCL 0.4 MG/ML INJ IVP PRN (07:28)
[2017-05-14] MEDS ORDERED: OXYCODONE/APAP 5/325 TAB PO PRN (07:28)
[2017-05-14] MEDS ORDERED: LR 500 ML IV PRN (07:28)
[2017-05-14] MEDS ORDERED: ONDANSETRON 4 MG/2 ML VIAL IVP PRN ×2 (07:28→09:26)
[2017-05-14] MEDS ORDERED: LIDOCAINE 2% 5 ML SDV ONE (08:48)
[2017-05-14] MEDS ORDERED: ONDANSETRON 4 MG/2 ML VIAL ONE (08:48)
[2017-05-14] MEDS ORDERED: ROCURONIUM 50 MG/5 ML VIAL ONE ×3 (08:48→09:02)
[2017-05-14] MEDS ORDERED: DEXAMETHASONE 4 MG/ML VIAL ONE (08:48)
[2017-05-14] MEDS ORDERED: SUGAMMADEX SODIUM 200 MG/2 ML VIAL IVP ONE (09:06)
--- NOTE | 2017-05-14 09:24 | POSTOPPROG ---
Post Op Note Date of Operation: 05/14/17 Surgeon: Rafal Ye Probation Counselor: Teresa Fay Anesthesiologist: Franc Donahue Anesthesia: GET(General Endotracheal) Pre-op Diagnosis: TOS, LUE DVT Post-op Diagnosis: same Procedure: right transaxillary 1st rib resection Findings: fibrous tissue, good deal of space thoracic outlet structures post resectio Inf/Abcess present in the surg proc area at time of surgery?: No EBL: Minimal Complications: none Specimen(s): right 1st rib to pathology
[2017-05-14] MEDS ORDERED: ALBUTEROL 200 PUFFS/18 GM MDI IH PRN (09:28)
[2017-05-14] MEDS ORDERED: ALBUTEROL 60 PUFFS/8 GM MDI IH PRN (09:28)
[2017-05-14] MEDS ORDERED: D5W 1/2 NS W/ 20 KCl/L 1,000 ML IV SCH (09:30)
[2017-05-14] MEDS ORDERED: NICOTINE 21 MG/24 HR PATCH TD SCH (09:45)
[2017-05-14] MEDS: fentaNYL 100 MCG/2 ML INJ IVP PRN ×2 (09:48→10:00)
[2017-05-14] MEDS ORDERED: DIAZEPAM 10 MG/2 ML SYR ONE (09:55)
[2017-05-14] MEDS ORDERED: DIAZEPAM 10 MG/2 ML SYR IVP PRN (10:26)
[2017-05-14] MEDS ORDERED: HYDROmorphONE/DILAUDID 1 MG/ML INJ ONE (10:33)
[2017-05-14] MEDS ORDERED: LIDO/EPI 1% **for epidural** 30 ML SDV IF ONE (12:15)
[2017-05-14] MEDS: OXYCODONE/APAP 5/325 TAB PO PRN ×2 (13:19→19:57)
[2017-05-14] MEDS: KETOROLAC 15 MG/1 ML SDV IVP SCH ×2 (14:00→17:32)
[2017-05-14] MEDS ORDERED: WARFARIN SODIUM 5 MG TAB PO SCH (16:00)
--- NOTE | 2017-05-14 17:27 | GOP ---
[f rep st] OPERATIVE REPORT DATE OF OPERATION: 05/14/2017 SURGEON: Rafal Ye MD PRODUCE CLERK: MARCO ANTONIO Chance. ANESTHESIOLOGIST: Dr. Donahue. PREOPERATIVE DIAGNOSIS: Left thoracic outlet with history of venous occlusion. POSTOPERATIVE DIAGNOSIS: Left thoracic outlet with history of venous occlusion. PROCEDURE PERFORMED: Left 1st rib resection. FINDINGS: The patient was found to have multiple fibrous bands along the thoracic inlet. DESCRIPTION OF PROCEDURE: Patient taken to the operating room, where he received satisfactory genera l endotracheal anesthesia by Dr. Donahue. He was placed in the right lateral decubitus position at a 3 0-degree angle, and prepped and draped in the usual sterile fashion. His arm was sterilely wrapped an d suspended with the Omni retractor bar. Incision was made at the base of the axilla. Dissection was carried down to the chest wall, and the dissection extended up along the chest wall to the level of t he 1st rib. Hemostasis was carefully obtained. With appropriate retraction, the 1st rib could be iden tified. The base of the rib was freed up with electrocautery and elevated up with a Hobson elevator. On the top of the rib, the anterior scalene muscle was looped with a right angle and divided with elect rocautery. Several other fibrous bands in the thoracic inlet were divided with right angle and electr ocautery. The subclavian artery and vein and the posterior cord were all well visualized and exposed, and complete dissection of the rib was done. The rib was then divided proximally and distally, and t he division points were shortened with rongeur bites taken about in pieces, with care to avoid injury to the nerves or the vessels. The subclavius tendon had been divided, as well, and the vein was free d up from some fibrous adhesions as much as possible. Hemostasis was assured. The wound was irrigated . There was no evidence of pneumothorax. Topical thrombin was placed in the base of the wound. The woodson bcu was closed with 3-0 Vicryl, and the skin with a 4-0 Monocryl subcuticular stitch. The superficial layers were infiltrated with 0.5% Marcaine. He tolerated the procedure well and was taken to the recovery room in good condition. No complication s. /[id number]/MODL
[2017-05-14] MEDS ORDERED: DOCUSATE SODIUM 100 MG CAP PO SCH (21:00)
--- NOTE | 2017-05-14 21:22 | POSTANESTH ---
Post Anesthetic Evaluation Cardiovascular Status: Normal, Stable, Similar to Pre-Op Cond Respiratory Status: Normal, Stable, Similar to Pre-op Cond. Level of Consciousness/Mental Status: Can Participate in Eval, Alert and Oriented Pain Control: Adequate, Prn Tx Ordered Nausea/Vomiting Control: Adequate, Prn Tx Ordered Complications Possibly Related to Anesthesia: None Noted
[2017-05-15] MEDS: KETOROLAC 15 MG/1 ML SDV IVP SCH ×2 (00:45→06:10)
[2017-05-15 04:01] VITALS: PULSE 88
[2017-05-15 05:28] LABS: ANION GAP 13 mEq/L (8-16); CALCIUM 9.9 mg/dL (8.5-10.4); CARBON DIOXIDE 24 mEq/l (22-31); CHLORIDE 102 mEq/L (97-110); CREATININE 0.9 mg/dL (0.7-1.3); GLOMERULAR FILTRATION RATE > 60; GLUCOSE 108 mg/dL (70-100); SODIUM 139 mEq/L (134-144)
[2017-05-15 05:48] LABS: INR 1.13 (0.83-1.16); PROTIME(PATIENT) 14.4 SEC (12.0-15.0)
[2017-05-15 07:32] VITALS: BP 134/81; RESP 18; TEMP 98.6; O2SAT 93
[2017-05-15] MEDS ORDERED: TRIAMCINOLONE 0.1% 15 GM CRTUBE TP SCH (09:00)
[2017-05-15] MEDS ORDERED: ENOXAPARIN 40 MG/0.4 ML SYR SC SCH (09:00)
--- NOTE | 2017-05-15 09:46 | ASDISCHSUM ---
Discharge Information Plan Status:Home with No Needs Medically Cleared to Leave:05/14/2017 Discharge Date:05/15/2017 09:15 AM CM D/C Disposition: ADT D/C Disposition:Home, Routine, Self-Care Projected Discharge Date:05/15/2017 12:00 AM Transportation at D/C: Discharge Delay Reason: Follow-Up Date:05/15/2017 12:00 AM Discharge Slot: Final Diagnosis: Placement Information Patient Contact Information Contact Name:AVA Relationship: Address: Work Phone: [facility]:[place] Alternate Phone: [facility]/Zip Code:[place] [address] Email: Financial Information Financial Class:[employer] Primary Plan Desc:[employer] LOCAL Primary Plan Number:[id number] Secondary Plan Desc: Secondary Plan Number: Assessment Information Intervention Information
== END 2017-05-15 09:15 | disposition home or self-care (01) ==
LOC: F3E 05:30
PROVIDERS: ADMIT Surgery; ATTEND Surgery
PROC: 0PT10ZZ Resection of 1 to 2 Ribs, Open Approach (ICD-10-PCS; principal; 2017-05-14 07:15)
DX: G54.0 Brachial plexus disorders (principal); I82.409 Acute embolism and thrombosis of unspecified deep veins of unspecified lower extremity
CPT/HCPCS: 21615; 71010; G0378; J0690; J1100; J1170; J1885; J2250; J2405; J2704; J3010

== ENCOUNTER → 2017-08-08 | Day surgery (SDC) | payer OTHER ==
[~2017-08-08] MED LIST: IOPAMIDOL (ISOVUE-300) 100 ML BTL ONE
--- NOTE | 2017-08-08 20:47 | PDGENHP ---
History & Physical Chief Complaint: Paget-Shrotter syndrome s/p first rib resection History of Present Illness: 47 yo M w Paget-Shrotter s/p lysis for LUE DVT and first rib resection. Referred for routine venography and possible angioplasty. Swelling decreased significantly since initial presentation, but not completely back to baseline. Denies pain. Has full use of LUE. Pertinent Past, Social, Family History: Works out regularly. Relevant Physical Exam: Very mild LUE swelling. No pitting edema. No obvious surface collaterals. Cardiorespiratory Assessment: RRR, normal resp effort.
--- NOTE | 2017-08-08 20:53 | PDRADPN ---
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 Inf/Abcess present in the surg proc area at time of surgery?: No EBL: Minimal Complications: No immediate
== END | disposition home or self-care (01) ==
LOC: FIMAGING 10:07
PROVIDERS: ATTEND Surgery
PROC: 05763ZZ Dilation of Left Subclavian Vein, Percutaneous Approach (ICD-10-PCS; principal; 2017-08-08)
PROC: 05H633Z Insertion of Infusion Device into Left Subclavian Vein, Percutaneous Approach (ICD-10-PCS; principal; 2017-08-08)
DX: I82.890 Acute embolism and thrombosis of other specified veins (principal); G54.0 Brachial plexus disorders; Z79.01 Long term (current) use of anticoagulants; Z79.82 Long term (current) use of aspirin
CPT/HCPCS: 36901; 36907; 75820; C1769; C1887; C1894; C1725; Q9967

== ENCOUNTER → 2017-08-20 | Day surgery (SDC) | payer OTHER ==
--- NOTE | 2017-08-20 10:33 | PDGENHP ---
History & Physical Chief Complaint: Paget-Shrotter syndrome s/p first rib resection/venoplasty History of Present Illness: 47 yo M w Paget-Schroetter s/p lysis for LUE DVT and first rib resection and venoplasty to 7 mm 12 days ago, here now for venography and repeat venoplasty. Very mild LUE swelling unchanged. Denies pain. Pertinent Past, Social, Family History: Works out regularly. Relevant Physical Exam: Very mild LUE swelling. No pitting edema. No obvious surface collaterals. Cardiorespiratory Assessment: RRR, normal resp effort.
--- NOTE | 2017-08-20 10:43 | PDRADPN ---
Radiology Procedure Note Date of Procedure: 08/20/17 Radiologist: Puma Marmolejo Pre-op Diagnosis: Randall Post-op Diagnosis: Same Indication: Stenosis Procedure: Venography, venoplasty Finding(s): See dictated report Inf/Abcess present in the surg proc area at time of surgery?: No EBL: Minimal Complications: No immediate
[2017-08-20 10:52] LABS: INR 4.2 (0.83-1.16); PROTIME(PATIENT) 40.1 SEC (12.0-15.0)
== END | disposition home or self-care (01) ==
LOC: FIMAGING 08:29
PROVIDERS: ATTEND Radiology Diagnostic Radiology
PROC: 03743ZZ Dilation of Left Subclavian Artery, Percutaneous Approach (ICD-10-PCS; principal; 2017-08-20)
DX: I77.1 Stricture of artery (principal); I82.890 Acute embolism and thrombosis of other specified veins
CPT/HCPCS: 37246; 75820; C1769; C1894; C1725; J1644; Q9967